=== PATIENT | male | born 1955 | race Caucasian/White ===

== ENCOUNTER 2020-05-15 13:29 | Outpatient (REF) | payer OTHER, SELFPAY ==
--- NOTE | ~2020-05-15 | XR_ITS ---
EXAMINATION: LUMBAR SPINE AND SACROILIAC JOINT X-RAYS CLINICAL INFORMATION: Sacroiliitis COMPARISON: None TECHNIQUE: 3 views of the lumbar spine and 3 views of the sacroiliac joints FINDINGS: Lumbar spine: Bone alignment is normal. No fracture or dislocation is seen. There is mild degenerative spondylosis at L4-L5. Disc spaces are normal. There is lower lumbar spine facet arthritis. The sacroiliac joints are normal-appearing. No evidence of proliferative or erosive arthritis is seen. There is increased sclerosis seen in both femoral heads. This appears more subchondral on the left. Appearance is questionable for AVN. XR/XR lumbar spine 2-3V IMPRESSION: Lumbar spine: Mild degenerative changes. Sacroiliac joints: Unremarkable exam. Increased sclerosis of both femoral heads questionable for AVN.
--- NOTE | ~2020-05-15 | XR_ITS ---
EXAMINATION: LUMBAR SPINE AND SACROILIAC JOINT X-RAYS CLINICAL INFORMATION: Sacroiliitis COMPARISON: None TECHNIQUE: 3 views of the lumbar spine and 3 views of the sacroiliac joints FINDINGS: Lumbar spine: Bone alignment is normal. No fracture or dislocation is seen. There is mild degenerative spondylosis at L4-L5. Disc spaces are normal. There is lower lumbar spine facet arthritis. The sacroiliac joints are normal-appearing. No evidence of proliferative or erosive arthritis is seen. There is increased sclerosis seen in both femoral heads. This appears more subchondral on the left. Appearance is questionable for AVN. XR/XR sacroiliac joint 1-2V IMPRESSION: Lumbar spine: Mild degenerative changes. Sacroiliac joints: Unremarkable exam. Increased sclerosis of both femoral heads questionable for AVN.
== END 2020-05-15 13:30 | disposition home or self-care (01) ==
LOC: HO.HMGCX 13:29
PROVIDERS: PCP Nurse Practitioner Family; Visit Provider Family Medicine
DX: M46.1 Sacroiliitis, not elsewhere classified (principal); M54.5 Low back pain
CPT/HCPCS: 72100; 72200

== ENCOUNTER 2020-06-14 11:00 | Outpatient (RCR) | payer OTHER, SELFPAY ==
--- NOTE | 2020-05-22 15:29 | MHC.PT.EP ---
[facility] [place] Office [place] Office [place] Office [address] Yadi Gavin [address] [phone] F: [phone] F: [phone] F: [phone] F: [phone] Physical Therapy Plan of Care Date of Evaluation: 05/22/20 Date of Surgery: N/A Diagnosis: Sacroilitis Assessment: John is a 64-year-old male presenting to physical therapy with a diagnosis of sacroilitis. He presents with deficits in LE strength, impaired posture, impaired gait, and asymmetry in his sacroiliac joint. He would benefit from skilled physical therapy to address the aforementioned impairments and increase his tolerance to prolonged sitting, walking, lifting, and carrying as needed for ADLs, work duties, and recreational activities. Frequency and Duration: The patient will be seen 2 visits per week for 5 weeks Short Term Goals: -Pt will report <2/10 pain at rest to allow him to sleep through the night without pain within 3 weeks. -Pt will be independent with HEP for symptom management and maintenance following discharge within 3 weeks. 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 -Pt will demonstrate global lumbar ROM WNL in order for him to be able to perform all work duties without restrictions within 5 weeks. Treatment Plan: Modalities to reduce pain, spasms and effusion. Manual therapy to restore motion and function. Therapeutic exercise to improve strength and flexibility. Neuromuscular re-education for posture and balance. Therapeutic activities to return to functional activities of daily living. Electronically signed by: Sruthi Solo, PT, DPT Please sign and return to therapist. Thank you for your referral.
--- NOTE | 2020-07-18 15:25 | MHC.PT.DC ---
[facility] [place] Office [place] Office [place] Office [address] Yadi Gavin [address] [facility] [phone] F: [phone] F: [phone] F: [phone] F: [phone] Physical Therapy Discharge Report Diagnosis: Sacroilitis Date of Surgery: N/A Date of Evaluation: 05/22/20 Date of Discharge: 06/22/20 Treatments to Date: 8 Cancellations to Date: 0 No Shows to Date: 0 Discharge Status: Discharge Summary: 06/14/20- Pt arrived with the same pain. Pt stated that he has not noticed much improvements with therapy. He will be following up with the orthopedic surgeon on July 04. Pt was given the choice to stop therapy today due to lack of improvement he however stated that he wanted to trail for one more week before he stops. Pt however did not return to therapy in the last week. He has therefore been discharged from therapy. Electronically signed by: Sruthi Solo, PT, DPT Please sign and return to therapist. Thank you for your referral.
== END 2020-07-18 15:26 | disposition other institution (70) ==
LOC: HO.PT 11:00
PROVIDERS: PCP Nurse Practitioner Family; Visit Provider Family Medicine
DX: M46.1 Sacroiliitis, not elsewhere classified (principal)
CPT/HCPCS: 97110; 97112; 97140; 97162; 97530

== ENCOUNTER 2020-07-17 09:26 | Outpatient (REF) | payer OTHER, SELFPAY ==
[2020-07-17 12:02] LABS: Alanine Aminotransferase 19 U/L (0-40); Albumin Level 4.1 g/dL (3.5-5.0); Alkaline Phosphatase 54 U/L (39-117); Anion Gap 13 (12-20); Aspartate Amino Transferase 16 U/L (5-37); Bilirubin Total 0.3 mg/dL (0.0-1.0); Blood Urea Nitrogen 16 mg/dL (9-16); Calcium 9.1 mg/dL (8.4-10.2); Carbon Dioxide 22 mmol/L (22-29); Chloride 108 mmol/L (96-108); Cholesterol 199 mg/dL; Estimated Glomerular Filt Rate > 60; Glucose Fasting 95 mg/dL (60-99); HDL Cholesterol 48 mg/dL; LDL Cholesterol Calculated 132 mg/dl; Potassium 4.1 mmol/L (3.3-5.1); Sodium 139 mmol/L (135-145); Total Protein 6.3 g/dL (6.5-8.0); Triglycerides 96 mg/dL
[2020-07-17 12:08] LABS: Prostate Specific Antigen Scr 0.44 ng/mL (<0.05-4.0)
== END 2020-07-17 09:27 | disposition home or self-care (01) ==
LOC: HO.HMGCLDS 09:26
PROVIDERS: PCP Nurse Practitioner Family; Visit Provider Nurse Practitioner Family
DX: Z00.00 Encounter for general adult medical examination without abnormal findings (principal); Z12.5 Encounter for screening for malignant neoplasm of prostate
CPT/HCPCS: 36415; 80053; 80061; 84153; 84443

== ENCOUNTER 2020-07-19 07:53 | Outpatient (REF) | payer OTHER, SELFPAY ==
--- NOTE | ~2020-07-19 | XR_ITS ---
EXAMINATION: XR PELVIS CLINICAL INFORMATION: Pain and unspecified hip COMPARISON: 05/15/2020. TECHNIQUE: AP view of the pelvis. FINDINGS: No displaced fracture. There is some increased sclerosis in the right femoral head. No cortical collapse. Sacroiliac and hip joints are normal. Pubic symphysis is normal. No abnormal soft tissue calcifications. Phleboliths within the pelvis. Moderate stool burden in the rectum. XR/XR pelvis 1-2V IMPRESSION: No fracture or dislocation. Some increased sclerosis in the right femoral head raises question of AVN.
== END 2020-07-19 07:54 | disposition home or self-care (01) ==
LOC: HO.HOSX 07:53
PROVIDERS: Visit Provider Orthopaedic Surgery
DX: M87.051 Idiopathic aseptic necrosis of right femur (principal); M25.552 Pain in left hip
CPT/HCPCS: 72170

== ENCOUNTER 2020-07-30 18:40 | Outpatient (REF) | payer OTHER, SELFPAY ==
--- NOTE | ~2020-07-30 | MR_ITS ---
EXAMINATION: MR HIP WITHOUT CONTRAST, RIGHT CLINICAL INFORMATION: Idiopathic aseptic necrosis of right femur. Patient reports right hip pain, no trauma. COMPARISON: None TECHNIQUE: MRI of the right hip was obtained using routine sequences on a high-field strength magnet. FINDINGS: BONE/JOINTS: Signal abnormality in the subchondral femoral head with serpiginous margins. This measures 4.3 x 4.4 x 2.9 cm (transverse, AP, craniocaudal). Findings have the appearance of focus of avascular necrosis. The femoral head contour is smooth, without evidence of definite subchondral collapse or subchondral fracture. There is [id number] edema in the femoral head, neck extending to the intertrochanteric region. This could be related to the avascular necrosis or represent superimposed stress or insufficiency injury. No focal fracture plane is seen. There is mild right hip arthritis, with areas of cartilage thinning, heterogeneity and fissuring, subchondral edema in the acetabulum. Small effusion. On the coronal sequence of the pelvis, there is signal abnormality with serpiginous margins in the left femoral head measuring approximately 1.7 cm transverse, probable focus of avascular necrosis. LABRUM: There is a tear of the anterosuperior labrum, as seen on the sagittal and axial sequences. MUSCLES/TENDONS: Mild distal gluteus minimus and medius tendinosis. Iliopsoas, common hamstring, rectus femoris tendons are intact. No trochanteric or iliopsoas bursitis. MISCELLANEOUS: No inguinal adenopathy. MR/MR hip RT wo con IMPRESSION: 1. Signal abnormality in the right femoral head compatible with focus of avascular necrosis measuring approximately 4.3 x 4.4 x 2.9 cm. No definite subchondral collapse/fracture. There is poxkkymw-hu-ulgqwy edema diffusely in the femoral head, neck and intertrochanteric region. This may be related to evolving avascular necrosis. Other etiology such as contusion, stress/insufficiency injury can have this appearance. No focal fracture is seen. 2. Mild right hip arthritis. Small effusion. 3. Tear of the right anterosuperior labrum. 4. Mild distal gluteus minimus and medius tendinosis. 5. Probable focus of avascular necrosis in the left femoral head, incompletely evaluated.
== END 2020-07-30 18:41 | disposition home or self-care (01) ==
LOC: HO.MRI 18:40
PROVIDERS: Visit Provider Orthopaedic Surgery
DX: M87.051 Idiopathic aseptic necrosis of right femur (principal)
CPT/HCPCS: 73721

== ENCOUNTER → 2020-08-02 08:39 | Outpatient (BNVA) | payer OTHER, SELFPAY | PROVIDERS: PCP Nurse Practitioner Family; Visit Provider Orthopaedic Surgery ==

== ENCOUNTER 2021-02-04 10:12 | Outpatient (REF) | payer BC, MEDICARE, SELFPAY ==
[2021-02-04 10:26] LABS: COVID-19 Test Positive (Negative)
== END 2021-02-04 10:13 | disposition home or self-care (01) ==
LOC: HO.LAB 10:12
PROVIDERS: Visit Provider Internal Medicine
DX: Z20.822 Contact with and (suspected) exposure to COVID-19 (principal)
CPT/HCPCS: 36415; 87635; C9803

== ENCOUNTER 2021-02-18 08:08 | Outpatient (REF) | payer BC, MEDICARE, SELFPAY ==
[2021-02-18 09:08] LABS: COVID-19 Test Negative (Negative)
== END 2021-02-18 08:09 | disposition home or self-care (01) ==
LOC: HO.LAB 08:08
PROVIDERS: Visit Provider Internal Medicine
DX: Z20.822 Contact with and (suspected) exposure to COVID-19 (principal)
CPT/HCPCS: 36415; 87635; C9803